=== PATIENT | male | born 1955 | race Caucasian/White ===

== ENCOUNTER 2017-11-07 10:16 | Inpatient (IN) | payer OTHER ==
[2017-11-07 11:22] LABS: WHITE BLOOD COUNT 1.2 10^3/ul (4.8-10.8)
[2017-11-07 11:22] LABS: ABNORMAL IP MESSAGE 1; HEMATOCRIT 31.5 % (42.0-52.0); HEMOGLOBIN 10.3 g/dl (14.0-18.0); MEAN CORPUSCULAR HEMOGLOBIN 28.1 pg (29.0-33.0); MEAN CORPUSCULAR HGB CONC 32.7 g/dl (32.0-37.0); MEAN CORPUSCULAR VOLUME 86.1 fl (82.0-101.0); MEAN PLATELET VOLUME 9.1 fl (7.4-10.4); PLATELET COUNT 207 10^3/UL (140-415); POSITIVE DIFF @See below; RED BLOOD COUNT 3.66 10^6/ul (4.70-6.10); RED CELL DISTRIBUTION WIDTH 19.5 % (11.5-14.5)
[2017-11-07 11:32] LABS: ADD MAN DIFF? YES
[2017-11-07 11:40] LABS: ALANINE AMINOTRANSFERASE 31 IU/L (13-69); ALBUMIN/GLOBULIN RATIO 1.03; ALKALINE PHOSPHATASE 208 IU/L (42-121); ANION GAP 17 (8-16); ASPARTATE AMINO TRANSFERASE 69 IU/L (15-46); BILIRUBIN,INDIRECT 0.5 mg/dl (0-1.1); BILIRUBIN,TOTAL 0.5 mg/dl (0.2-1.3); BLOOD UREA NITROGEN 28 mg/dl (7-20); CALCIUM 8.3 mg/dl (8.4-10.2); CARBON DIOXIDE 23 mmol/L (21-31); CHLORIDE 104 mmol/L (97-110); CREATININE 1.39 mg/dl (0.61-1.24); SODIUM 141 mmol/L (135-144); TOTAL PROTEIN 5.9 g/dl (6.1-8.1)
[2017-11-07 11:42] LABS: INR 1.11; PARTIAL THROMBOPLASTIN TIME 23.1 Sec (25.0-35.0); PROTIME 14.5 Sec (11.9-14.9); PT RATIO 1.1
[2017-11-07 11:43] LABS: POTASSIUM 2.7 mmol/L (3.5-5.1)
[2017-11-07] MEDS: D5W-0.45 NACL + KCL 40 MEQ 1,000 ML IV ×2 (12:28→20:00)
[2017-11-07] MEDS ORDERED: morphine 2 MG INJ IV (12:30)
[2017-11-07] MEDS ORDERED: ALBUTEROL/IPRATROPIUM (NEB) 3 ML AMP HHN (12:30)
[2017-11-07] MEDS ORDERED: LORAZEPAM 2 MG INJ IV (12:30)
[2017-11-07] MEDS ORDERED: ACETAMINOPHEN 325 MG TAB PO (12:30)
[2017-11-07] MEDS ORDERED: NACL 0.9% 3 ML SYG IV (12:30)
[2017-11-07] MEDS ORDERED: NITROGLYCERIN (SL) 0.4 MG TAB SL (12:30)
[2017-11-07] MEDS ORDERED: hydrALAzine 20 MG INJ IV (12:30)
[2017-11-07] MEDS ORDERED: HYDROCODONE/APAP (5/325) TAB PO (12:30)
[2017-11-07] MEDS: INSULIN ASPART [NOVOLOG] 3 ML PEN SC ×3 (13:00→21:00)
[2017-11-07 13:57] LABS: LACTIC ACID 3.3 mmol/L (0.5-2.0)
[2017-11-07] MEDS ORDERED: GLUCAGON 1 MG INJ IM (14:00)
[2017-11-07] MEDS ORDERED: DEXTROSE 50% 50 ML SYRINGE IV ×2 (14:00)
[2017-11-07] MEDS ORDERED: GLUCOSE GEL 15 GRAM TUBE PO ×2 (14:00)
[2017-11-07] MEDS ORDERED: GLUCOSE GEL 15 GRAM TUBE BUCCAL (14:00)
[2017-11-07 14:12] LABS: FREE T4 (FREE THYROXINE) 1.54 ng/dl (0.78-2.44)
[2017-11-07 18:43] LABS: LACTIC ACID 2.8 mmol/L (0.5-2.0)
[2017-11-07 21:18] LABS: LACTIC ACID 3.2 mmol/L (0.5-2.0)
[2017-11-07] MEDS: ATORVASTATIN 10 MG TAB PO (21:53)
[2017-11-07] MEDS: HEPARIN 5,000 UNIT/0.5 ML VIAL SC (21:54)
[2017-11-08] MEDS: INSULIN ASPART [NOVOLOG] 3 ML PEN SC ×6 (01:00→21:00)
[2017-11-08] MEDS: POTASSIUM CHLORIDE (SR) 20 MEQ TAB PO (01:26)
[2017-11-08] MEDS: D5W-0.45 NACL + KCL 40 MEQ 1,000 ML IV ×4 (01:40→21:25)
[2017-11-08] MEDS: ACCU-CHEK XX (02:00)
[2017-11-08] MEDS: PANTOPRAZOLE (EC) 40 MG TAB PO (06:49)
[2017-11-08] MEDS: POTASSIUM CHLORIDE (SR) 10 MEQ TAB PO (06:49)
[2017-11-08 07:56] LABS: ABNORMAL IP MESSAGE 1; HEMATOCRIT 32.7 % (42.0-52.0); HEMOGLOBIN 10.3 g/dl (14.0-18.0); MEAN CORPUSCULAR HEMOGLOBIN 27.9 pg (29.0-33.0); MEAN CORPUSCULAR HGB CONC 31.5 g/dl (32.0-37.0); MEAN CORPUSCULAR VOLUME 88.6 fl (82.0-101.0); MEAN PLATELET VOLUME 8.9 fl (7.4-10.4); PLATELET COUNT 200 10^3/UL (140-415); POSITIVE DIFF @See below; RED BLOOD COUNT 3.69 10^6/ul (4.70-6.10); RED CELL DISTRIBUTION WIDTH 19.8 % (11.5-14.5)
[2017-11-08 07:56] LABS: WHITE BLOOD COUNT 1.5 10^3/ul (4.8-10.8)
[2017-11-08 08:05] LABS: ADD MAN DIFF? YES
[2017-11-08 08:09] LABS: CHOLESTEROL 96 mg/dl (100-200)
[2017-11-08 08:09] LABS: CHOL/HDL RATIO 2.3 RATIO; HDL CHOLESTEROL 41 mg/dl (30-78); LDL CHOLESTEROL,CALCULATED 30 mg/dl; TRIGLYCERIDES 123 mg/dl (0-149)
[2017-11-08 08:12] LABS: ANION GAP 10 (8-16); BLOOD UREA NITROGEN 21 mg/dl (7-20); CALCIUM 8.4 mg/dl (8.4-10.2); CARBON DIOXIDE 31 mmol/L (21-31); CHLORIDE 105 mmol/L (97-110); CREATININE 0.95 mg/dl (0.61-1.24); GLUCOSE 116 mg/dl (70-220); MAGNESIUM 1.7 mg/dl (1.7-2.5); PHOSPHORUS 2.7 mg/dl (2.5-4.9); SODIUM 142 mmol/L (135-144)
[2017-11-08 08:17] LABS: HEMOGLOBIN A1C 5.3 % (0-5.9)
[2017-11-08] MEDS: FOLIC ACID 1 MG TAB PO (08:43)
[2017-11-08] MEDS: FERROUS SULFATE (EC) 325 MG TAB PO (08:43)
[2017-11-08] MEDS: ASPIRIN (EC) 81 MG TAB PO (08:43)
[2017-11-08] MEDS: CHOLECALCIFEROL 2,000 UNIT CAP PO (08:43)
[2017-11-08] MEDS: AMLODIPINE 10 MG TAB PO (08:44)
[2017-11-08] MEDS: HEPARIN 5,000 UNIT/0.5 ML VIAL SC ×2 (08:45→20:29)
[2017-11-08 10:37] LABS: ANISOCYTOSIS 3+ (0-0); BAND NEUTROPHILS #M 0.1 10^3/ul (0.0-0.6); BAND NEUTROPHILS % (M) 13 % (0-4); BURR CELLS 1+ (0-0); EOSINOPHILS % (M) 5 % (0-7); GIANT THROMBO% (M) 1 % (0-0); LYMPHOCYTES #M 0.8 10^3/ul (0.8-2.9); LYMPHOCYTES % (M) 54 % (15-51); MICROCYTOSIS 2+ (0-0); PLATELET ESTIMATE NORMAL; POIKILOCYTOSIS 2+ (0-0); POLYCHROMASIA 3+ (0-0); RBC MORPHOLOGY COMMENT @See below; SEG NEUT #M 0.4 10^3/ul (1.6-7.5); SEGMENTED NEUTROPHILS (M) % 28 % (39-77); SMUDGE%M 4 % (0-0); WBC MORPHOLOGY COMMENT @See below
[2017-11-08] MEDS: ATORVASTATIN 10 MG TAB PO (20:27)
[2017-11-08] MEDS: ONDANSETRON 4 MG INJ IV (20:27)
[2017-11-09] MEDS: INSULIN ASPART [NOVOLOG] 3 ML PEN SC ×6 (01:32→21:00)
[2017-11-09] MEDS: ACCU-CHEK XX (01:33)
[2017-11-09] MEDS: PANTOPRAZOLE (EC) 40 MG TAB PO (05:24)
[2017-11-09] MEDS: D5W-0.45 NACL + KCL 40 MEQ 1,000 ML IV ×2 (05:24→11:24)
[2017-11-09 06:57] LABS: WHITE BLOOD COUNT 1.3 10^3/ul (4.8-10.8)
[2017-11-09 06:57] LABS: ABNORMAL IP MESSAGE 1; HEMATOCRIT 27.8 % (42.0-52.0); HEMOGLOBIN 9.1 g/dl (14.0-18.0); MEAN CORPUSCULAR HEMOGLOBIN 28.5 pg (29.0-33.0); MEAN CORPUSCULAR HGB CONC 32.7 g/dl (32.0-37.0); MEAN CORPUSCULAR VOLUME 87.1 fl (82.0-101.0); MEAN PLATELET VOLUME 9.1 fl (7.4-10.4); PLATELET COUNT 129 10^3/UL (140-415); POSITIVE DIFF @See below; RED BLOOD COUNT 3.19 10^6/ul (4.70-6.10); RED CELL DISTRIBUTION WIDTH 19.8 % (11.5-14.5)
[2017-11-09 07:06] LABS: ADD MAN DIFF? YES
[2017-11-09 07:24] LABS: ANION GAP 9 (8-16); BLOOD UREA NITROGEN 15 mg/dl (7-20); CALCIUM 8.2 mg/dl (8.4-10.2); CARBON DIOXIDE 29 mmol/L (21-31); CHLORIDE 105 mmol/L (97-110); CREATININE 0.73 mg/dl (0.61-1.24); GLUCOSE 148 mg/dl (70-220); POTASSIUM 4.9 mmol/L (3.5-5.1); SODIUM 138 mmol/L (135-144)
[2017-11-09 08:08] LABS: ANISOCYTOSIS 2+ (0-0); BASOPHILS % (M) 1 % (0-2); GIANT THROMBO% (M) 1 % (0-0); MICROCYTOSIS 2+ (0-0); PLATELET ESTIMATE DECREASED; POIKILOCYTOSIS 2+ (0-0); SEG NEUT #M 0.3 10^3/ul (1.6-7.5)
[2017-11-09] MEDS: FOLIC ACID 1 MG TAB PO (09:12)
[2017-11-09] MEDS: FERROUS SULFATE (EC) 325 MG TAB PO (09:12)
[2017-11-09] MEDS: CHOLECALCIFEROL 2,000 UNIT CAP PO (09:12)
[2017-11-09] MEDS: ASPIRIN (EC) 81 MG TAB PO (09:12)
[2017-11-09] MEDS: AMLODIPINE 10 MG TAB PO (09:18)
[2017-11-09] MEDS: HEPARIN 5,000 UNIT/0.5 ML VIAL SC ×2 (09:34→21:25)
[2017-11-09 09:56] LABS: BAND NEUTROPHILS % (M) 4 % (0-4); EOSINOPHILS % (M) 30 % (0-7); LYMPHOCYTES #M 0.5 10^3/ul (0.8-2.9); LYMPHOCYTES % (M) 40 % (15-51); MONOCYTES % (M) 2 % (0-11); POLYCHROMASIA 2+ (0-0); REACTIVE LYMPHOCYTES% (M) 1 % (0-0); SEGMENTED NEUTROPHILS (M) % 24 % (39-77); SMUDGE%M 2 % (0-0)
[2017-11-09] MEDS: ONDANSETRON 4 MG INJ IV (11:19)
[2017-11-09] MEDS: DOCUSATE SODIUM 100 MG CAP PO (14:53)
[2017-11-09] MEDS: MAGNESIUM HYDROXIDE 30ML CUP PO ×2 (14:53→18:08)
[2017-11-09] MEDS: ATORVASTATIN 10 MG TAB PO (21:24)
[2017-11-09] MEDS: NA PHOSPHATE/BIPHOS 133 ML ENEMA PR (21:24)
[2017-11-10] MEDS: D5W-0.45 NACL + KCL 40 MEQ 1,000 ML IV ×2 (02:33→04:00)
[2017-11-10] MEDS: INSULIN ASPART [NOVOLOG] 3 ML PEN SC ×4 (02:40→12:51)
[2017-11-10] MEDS: ACCU-CHEK XX (02:40)
[2017-11-10] MEDS: PANTOPRAZOLE (EC) 40 MG TAB PO (05:24)
[2017-11-10 08:03] LABS: WHITE BLOOD COUNT 1.6 10^3/ul (4.8-10.8)
[2017-11-10 08:03] LABS: ABNORMAL IP MESSAGE 1; HEMATOCRIT 27.7 % (42.0-52.0); HEMOGLOBIN 8.9 g/dl (14.0-18.0); MEAN CORPUSCULAR HEMOGLOBIN 28.1 pg (29.0-33.0); MEAN CORPUSCULAR HGB CONC 32.1 g/dl (32.0-37.0); MEAN CORPUSCULAR VOLUME 87.4 fl (82.0-101.0); MEAN PLATELET VOLUME 9.3 fl (7.4-10.4); PLATELET COUNT 132 10^3/UL (140-415); POSITIVE DIFF @See below; RED BLOOD COUNT 3.17 10^6/ul (4.70-6.10); RED CELL DISTRIBUTION WIDTH 19.7 % (11.5-14.5)
[2017-11-10 08:06] LABS: ADD MAN DIFF? YES
[2017-11-10 08:28] LABS: ANION GAP 7 (8-16); BLOOD UREA NITROGEN 12 mg/dl (7-20); CALCIUM 8.3 mg/dl (8.4-10.2); CARBON DIOXIDE 30 mmol/L (21-31); CHLORIDE 106 mmol/L (97-110); CREATININE 0.76 mg/dl (0.61-1.24); GLUCOSE 140 mg/dl (70-220); POTASSIUM 5.1 mmol/L (3.5-5.1); SODIUM 138 mmol/L (135-144)
[2017-11-10] MEDS: FOLIC ACID 1 MG TAB PO (09:16)
[2017-11-10] MEDS: CHOLECALCIFEROL 2,000 UNIT CAP PO (09:16)
[2017-11-10] MEDS: ASPIRIN (EC) 81 MG TAB PO (09:16)
[2017-11-10] MEDS: FERROUS SULFATE (EC) 325 MG TAB PO (09:17)
[2017-11-10] MEDS: AMLODIPINE 10 MG TAB PO (09:17)
[2017-11-10] MEDS: HEPARIN 5,000 UNIT/0.5 ML VIAL SC (09:20)
[2017-11-10 09:42] LABS: GLUCOSE 41 mg/dl (70-220)
[2017-11-10 09:56] LABS: ANISOCYTOSIS 2+ (0-0); BASOPHILS % (M) 2 % (0-2); BURR CELLS 1+ (0-0); EOSINOPHILS % (M) 38 % (0-7); LYMPHOCYTES #M 0.5 10^3/ul (0.8-2.9); LYMPHOCYTES % (M) 35 % (15-51); MICROCYTOSIS 2+ (0-0); MONOCYTES % (M) 4 % (0-11); PLATELET ESTIMATE DECREASED; POIKILOCYTOSIS 1+ (0-0); POLYCHROMASIA 3+ (0-0); SEGMENTED NEUTROPHILS (M) % 21 % (39-77); SMUDGE%M 11 % (0-0)
[2017-11-11 15:33] LABS: PATH REVIEW CH
== END 2017-11-10 17:25 | disposition home or self-care (01) | DRG 101 ==
LOC: E/R 10:16 → MS4 12:20
DX: G40.409 Other generalized epilepsy and epileptic syndromes, not intractable, without status epilepticus (principal); C18.9 Malignant neoplasm of colon, unspecified; C78.7 Secondary malignant neoplasm of liver and intrahepatic bile duct; E11.649 Type 2 diabetes mellitus with hypoglycemia without coma; E87.6 Hypokalemia; I10 Essential (primary) hypertension; N28.9 Disorder of kidney and ureter, unspecified; E78.5 Hyperlipidemia, unspecified
CPT/HCPCS: 36415; 70450; 70551; 71045; 80048; 80053; 80061; 82962; 83036; 83605; 83735; 84100; 84439; 84443; 85025; 85610; 85730; 87040; 87081; 92610; 93005; 95819; 96374; 97161; 99285-25

== ENCOUNTER 2017-12-15 21:13 | Inpatient (IN) | payer OTHER ==
[2017-12-15] MEDS ORDERED: DEXTROSE 50% 50 ML SYRINGE IV ×2 (23:00)
[2017-12-15] MEDS ORDERED: GLUCOSE GEL 15 GRAM TUBE BUCCAL (23:00)
[2017-12-15] MEDS ORDERED: GLUCOSE GEL 15 GRAM TUBE PO ×2 (23:00)
[2017-12-15] MEDS ORDERED: GLUCAGON 1 MG INJ IM (23:00)
[2017-12-16 00:48] LABS: ADD MAN DIFF? NO
[2017-12-16 00:53] LABS: BASOPHIL # 0.1 10^3/ul (0.0-0.1); BASOPHILS % 0.7 % (0.0-2.0); EOSINOPHILS # 0.6 10^3/ul (0.0-0.5); EOSINOPHILS % 4.3 % (0.0-7.0); HEMATOCRIT 28.9 % (42.0-52.0); HEMOGLOBIN 9.1 g/dl (14.0-18.0); LYMPHOCYTES # 1.3 10^3/ul (0.8-2.9); MEAN CORPUSCULAR HEMOGLOBIN 27.7 pg (29.0-33.0); MEAN CORPUSCULAR HGB CONC 31.5 g/dl (32.0-37.0); MEAN CORPUSCULAR VOLUME 88.1 fl (82.0-101.0); MEAN PLATELET VOLUME 9.3 fl (7.4-10.4); MONOCYTE # 1.3 10^3/ul (0.3-0.9); MONOCYTES % 8.5 % (0.0-11.0); NEUTROPHIL # 11.2 10^3/ul (1.6-7.5); NEUTROPHILS % 75.9 % (39.0-77.0); PLATELET COUNT 187 10^3/UL (140-415); RED BLOOD COUNT 3.28 10^6/ul (4.70-6.10); RED CELL DISTRIBUTION WIDTH 21.6 % (11.5-14.5)
[2017-12-16 00:53] LABS: WHITE BLOOD COUNT 14.8 10^3/ul (4.8-10.8)
[2017-12-16 01:18] LABS: ANION GAP 11 (8-16); BLOOD UREA NITROGEN 32 mg/dl (7-20); CALCIUM 8.1 mg/dl (8.4-10.2); CARBON DIOXIDE 24 mmol/L (21-31); CHLORIDE 107 mmol/L (97-110); CREATININE 0.96 mg/dl (0.61-1.24); GLUCOSE 118 mg/dl (70-220); MAGNESIUM 1.6 mg/dl (1.7-2.5); POTASSIUM 3.3 mmol/L (3.5-5.1); SODIUM 139 mmol/L (135-144)
[2017-12-16] MEDS: ACCU-CHEK XX (02:00)
[2017-12-16] MEDS: morphine 2 MG INJ IV ×4 (05:22→20:41)
[2017-12-16] MEDS ORDERED: NACL 0.9% 3 ML SYG IV (06:00)
[2017-12-16] MEDS ORDERED: ALBUTEROL/IPRATROPIUM (NEB) 3 ML AMP HHN (06:00)
[2017-12-16] MEDS: MAGNESIUM SULFATE 2 GM/50 ML 50 ML IVPB (06:33)
[2017-12-16] MEDS: INSULIN ASPART [NOVOLOG] 3 ML PEN SC ×4 (08:00→20:40)
[2017-12-16 08:03] LABS: LACTIC ACID 1.1 mmol/L (0.5-2.0)
[2017-12-16 08:21] LABS: IRON 41 ug/dl (35-150)
[2017-12-16 08:31] LABS: % IRON SATURATION 21 % SAT (22-52); TOTAL IRON BINDING CAPACITY 197 ug/dl (241-421)
[2017-12-16] MEDS: CEFTRIAXONE 1 GM/50 ML (PMX) 50 ML IVPB ×2 (09:14→22:44)
[2017-12-16] MEDS: POTASSIUM CHLORIDE (SR) 20 MEQ TAB PO (15:25)
[2017-12-16] MEDS: FUROSEMIDE 20 MG INJ IV (15:26)
[2017-12-16 17:46] LABS: ADD UMIC YES; UR ASCORBIC ACID NEGATIVE (NEGATIVE); UR BACTERIA FEW /HPF (NONE SEEN); UR BILIRUBIN (Dip) NEGATIVE (NEGATIVE); UR BLOOD (Dip) 1+ mg/dL (NEGATIVE); UR CLARITY CLOUDY (CLEAR); UR COLOR YELLOW (YELLOW); UR GLUCOSE (Dip) NEGATIVE (NEGATIVE); UR KETONES (Dip) NEGATIVE (NEGATIVE); UR LEUKOCYTE ESTERASE (Dip) 3+ Leu/ul (NEGATIVE); UR NITRITE (Dip) NEGATIVE (NEGATIVE); UR RBC 4 /HPF (0-5); UR SPECIFIC GRAVITY (Dip) 1.015 (1.003-1.030); UR TOTAL PROTEIN (Dip) NEGATIVE (NEGATIVE); UR URIC ACID CRYSTAL MODERATE /HPF (NONE SEEN); UR UROBILINOGEN (Dip) NEGATIVE (NEGATIVE); UR WBC 34 /HPF (0-5)
[2017-12-16] MEDS: INSULIN GLARGINE [LANtus] 3 ML PEN SC (22:43)
[2017-12-17] MEDS: morphine 2 MG INJ IV ×3 (01:03→10:13)
[2017-12-17] MEDS: ACCU-CHEK XX (02:55)
[2017-12-17] MEDS: ONDANSETRON 4 MG INJ IV (05:31)
[2017-12-17] MEDS: INSULIN ASPART [NOVOLOG] 3 ML PEN SC ×4 (08:00→20:41)
[2017-12-17 08:22] LABS: WHITE BLOOD COUNT 27.5 10^3/ul (4.8-10.8)
[2017-12-17 08:22] LABS: ABNORMAL IP MESSAGE 1; HEMATOCRIT 34.2 % (42.0-52.0); HEMOGLOBIN 10.3 g/dl (14.0-18.0); MEAN CORPUSCULAR HEMOGLOBIN 27.2 pg (29.0-33.0); MEAN CORPUSCULAR HGB CONC 30.1 g/dl (32.0-37.0); MEAN CORPUSCULAR VOLUME 90.2 fl (82.0-101.0); MEAN PLATELET VOLUME 9.6 fl (7.4-10.4); PLATELET COUNT 240 10^3/UL (140-415); POSITIVE DIFF @See below; RED BLOOD COUNT 3.79 10^6/ul (4.70-6.10); RED CELL DISTRIBUTION WIDTH 21.7 % (11.5-14.5)
[2017-12-17 08:28] LABS: ADD MAN DIFF? YES
[2017-12-17] MEDS: CEFTRIAXONE 2 GM/50 ML (PMX) 50 ML IVPB (08:44)
[2017-12-17] MEDS: FUROSEMIDE 20 MG INJ IV (08:46)
[2017-12-17 08:48] LABS: ALANINE AMINOTRANSFERASE 28 IU/L (13-69); ALBUMIN 2.8 g/dl (3.3-4.9); ALKALINE PHOSPHATASE 320 IU/L (42-121); ANION GAP 13 (8-16); ASPARTATE AMINO TRANSFERASE 46 IU/L (15-46); BILIRUBIN,INDIRECT 0.4 mg/dl (0-1.1); BILIRUBIN,TOTAL 0.4 mg/dl (0.2-1.3); BLOOD UREA NITROGEN 30 mg/dl (7-20); CALCIUM 8.4 mg/dl (8.4-10.2); CARBON DIOXIDE 26 mmol/L (21-31); CHLORIDE 106 mmol/L (97-110); CREATININE 0.95 mg/dl (0.61-1.24); GLUCOSE 116 mg/dl (70-220); POTASSIUM 3.5 mmol/L (3.5-5.1); SODIUM 141 mmol/L (135-144); TOTAL PROTEIN 5.9 g/dl (6.1-8.1)
[2017-12-17 09:41] LABS: ANISOCYTOSIS 2+ (0-0); BAND NEUTROPHILS #M 2.7 10^3/ul (0.0-0.6); BAND NEUTROPHILS % (M) 10 % (0-4); BASOPHIL #M 0.2 10^3/ul (0.0-0.0); BASOPHILS % (M) 1 % (0-2); EOSINOPHILS % (M) 3 % (0-7); LYMPHOCYTES #M 1.3 10^3/ul (0.8-2.9); LYMPHOCYTES % (M) 5 % (15-51); MICROCYTOSIS 2+ (0-0); MONOCYTE #M 1.9 10^3/ul (0.3-0.9); MONOCYTES % (M) 7 % (0-11); PLATELET ESTIMATE NORMAL; POIKILOCYTOSIS 2+ (0-0); POLYCHROMASIA 3+ (0-0); SEG NEUT #M 21.1 10^3/ul (1.6-7.5); SEGMENTED NEUTROPHILS (M) % 74 % (39-77); SMUDGE%M 2 % (0-0)
[2017-12-17] MEDS: HYDROmorphONE 1 MG/ML SYG IV ×2 (14:37→20:09)
[2017-12-17] MEDS ORDERED: VANCOMYCIN IV PER PHARMACY XX (16:00)
[2017-12-17] MEDS ORDERED: ERTAPENEM SODIUM 1 GM in SOD CHLORIDE 0.9% 100 ML IVPB (17:00)
[2017-12-17] MEDS: ALBUMIN HUMAN 5% 250 ML IV (17:17)
[2017-12-17] MEDS ORDERED: VANCOMYCIN 2 GM in SOD CHLORIDE 0.9% 500 ML IVPB (18:00)
[2017-12-17] MEDS: VANCOMYCIN 2 GM in SOD CHLORIDE 0.9% 500 ML IVPB (20:09)
[2017-12-17] MEDS: INSULIN GLARGINE [LANtus] 3 ML PEN SC (20:40)
[2017-12-18] MEDS: HYDROmorphONE 1 MG/ML SYG IV ×6 (01:28→22:04)
[2017-12-18] MEDS: ERTAPENEM SODIUM 1 GM in SOD CHLORIDE 0.9% 100 ML IVPB ×2 (01:28→20:36)
[2017-12-18] MEDS: ACCU-CHEK XX (02:00)
[2017-12-18] MEDS: VANCOMYCIN 1.5 GM in SOD CHLORIDE 0.9% 250 ML IVPB ×2 (06:37→17:23)
[2017-12-18] MEDS: INSULIN ASPART [NOVOLOG] 3 ML PEN SC ×4 (08:00→20:51)
[2017-12-18] MEDS: FUROSEMIDE 20 MG INJ IV (08:03)
[2017-12-18 08:27] LABS: ADD MAN DIFF? NO
[2017-12-18 08:31] LABS: WHITE BLOOD COUNT 34.5 10^3/ul (4.8-10.8)
[2017-12-18 08:31] LABS: ABNORMAL IP MESSAGE 1; HEMATOCRIT 30.4 % (42.0-52.0); HEMOGLOBIN 9.7 g/dl (14.0-18.0); MEAN CORPUSCULAR HEMOGLOBIN 28.2 pg (29.0-33.0); MEAN CORPUSCULAR HGB CONC 31.9 g/dl (32.0-37.0); MEAN CORPUSCULAR VOLUME 88.4 fl (82.0-101.0); MEAN PLATELET VOLUME 9.1 fl (7.4-10.4); PLATELET COUNT 207 10^3/UL (140-415); POSITIVE DIFF @See below; RED BLOOD COUNT 3.44 10^6/ul (4.70-6.10); RED CELL DISTRIBUTION WIDTH 21.7 % (11.5-14.5)
[2017-12-18 09:03] LABS: ANION GAP 14 (8-16); BLOOD UREA NITROGEN 30 mg/dl (7-20); CALCIUM 8.1 mg/dl (8.4-10.2); CARBON DIOXIDE 21 mmol/L (21-31); CHLORIDE 107 mmol/L (97-110); CREATININE 1.15 mg/dl (0.61-1.24); GLUCOSE 103 mg/dl (70-220); SODIUM 139 mmol/L (135-144)
[2017-12-18 09:38] LABS: ANISOCYTOSIS 1+ (0-0); BAND NEUTROPHILS #M 2.7 10^3/ul (0.0-0.6); BAND NEUTROPHILS % (M) 8 % (0-4); BURR CELLS 1+ (0-0); EOSINOPHILS % (M) 1 % (0-7); LYMPHOCYTES % (M) 3 % (15-51); METAMYELOCYTES #M 0.3 10^3/ul (0.0-0.0); METAMYELOCYTES %M 1 % (0-0); MICROCYTOSIS 1+ (0-0); MONOCYTE #M 0.3 10^3/ul (0.3-0.9); MONOCYTES % (M) 1 % (0-11); MYELOCYTES #M 0.3 10^3/ul (0.0-0.0); MYELOCYTES % (M) 1 % (0-0); OVALOCYTES 1+ (0-0); PLATELET ESTIMATE NORMAL; POIKILOCYTOSIS 1+ (0-0); POLYCHROMASIA 1+ (0-0); PROMYELOCYTES #M 0.3 10^3/ul (0-0); PROMYELOCYTES % (M) 1 % (0-0); SEG NEUT #M 29.9 10^3/ul (1.6-7.5); SEGMENTED NEUTROPHILS (M) % 84 % (39-77); SMUDGE%M 2 % (0-0)
[2017-12-18] MEDS: POTASSIUM CHLORIDE (SR) 20 MEQ TAB PO (13:03)
[2017-12-18 14:28] LABS: INR 1.28; PROTIME 16.2 Sec (11.9-14.9); PT RATIO 1.3
[2017-12-18] MEDS: LIDOCAINE 1% (MDV) 10 ML INJ (15:44)
[2017-12-18 16:44] LABS: FLD RBC 0 /uL; FLD WBC 382 /cmm
[2017-12-18 16:51] LABS: FLUID GLUCOSE 111 mg/dl
[2017-12-18 16:52] LABS: FLUID AMYLASE < 30 U/L; FLUID LD 254 U/L; FLUID TYPE PARACENTESIS FLUID
[2017-12-18 16:53] LABS: FLUID TOTAL PROTEIN < 2.0 g/dl
[2017-12-18 18:07] LABS: FLD TYPE PARACENTHESIS
[2017-12-18 18:07] LABS: FLD CLARITY HAZY; FLD COLOR AMBER
[2017-12-18 18:31] LABS: FLD MN% 62.5 %; FLD PMN% 37.5 %
[2017-12-18] MEDS: INSULIN GLARGINE [LANtus] 3 ML PEN SC (20:50)
[2017-12-19] MEDS: ACCU-CHEK XX (02:00)
[2017-12-19] MEDS: HYDROmorphONE 1 MG/ML SYG IV ×5 (02:34→23:11)
[2017-12-19 06:29] LABS: ADD MAN DIFF? NO
[2017-12-19 06:33] LABS: WHITE BLOOD COUNT 23.1 10^3/ul (4.8-10.8)
[2017-12-19 06:33] LABS: BASOPHIL # 0.2 10^3/ul (0.0-0.1); BASOPHILS % 0.6 % (0.0-2.0); EOSINOPHILS # 1.1 10^3/ul (0.0-0.5); EOSINOPHILS % 4.7 % (0.0-7.0); HEMATOCRIT 29.4 % (42.0-52.0); HEMOGLOBIN 9.3 g/dl (14.0-18.0); LYMPHOCYTES # 1.3 10^3/ul (0.8-2.9); LYMPHOCYTES % 5.7 % (15.0-51.0); MEAN CORPUSCULAR HEMOGLOBIN 28.4 pg (29.0-33.0); MEAN CORPUSCULAR HGB CONC 31.6 g/dl (32.0-37.0); MEAN CORPUSCULAR VOLUME 89.9 fl (82.0-101.0); MEAN PLATELET VOLUME 9.1 fl (7.4-10.4); MONOCYTE # 1.5 10^3/ul (0.3-0.9); MONOCYTES % 6.4 % (0.0-11.0); NEUTROPHIL # 18.9 10^3/ul (1.6-7.5); NEUTROPHILS % 81.8 % (39.0-77.0); PLATELET COUNT 192 10^3/UL (140-415); RED BLOOD COUNT 3.27 10^6/ul (4.70-6.10); RED CELL DISTRIBUTION WIDTH 21.3 % (11.5-14.5)
[2017-12-19 07:06] LABS: ANION GAP 9 (8-16); BLOOD UREA NITROGEN 34 mg/dl (7-20); CALCIUM 8.1 mg/dl (8.4-10.2); CARBON DIOXIDE 24 mmol/L (21-31); CHLORIDE 108 mmol/L (97-110); CREATININE 1.19 mg/dl (0.61-1.24); GLUCOSE 98 mg/dl (70-220); POTASSIUM 3.1 mmol/L (3.5-5.1); SODIUM 138 mmol/L (135-144)
[2017-12-19] MEDS: INSULIN ASPART [NOVOLOG] 3 ML PEN SC ×4 (08:00→20:55)
[2017-12-19] MEDS: FUROSEMIDE 20 MG INJ IV (08:44)
[2017-12-19] MEDS: POTASSIUM CHLORIDE (SR) 20 MEQ TAB PO (16:48)
[2017-12-19] MEDS: MEGESTROL (40 MG/ML) 10ML CUP PO (16:48)
[2017-12-19] MEDS: ZYVOX 600 MG TAB PO (20:55)
[2017-12-19] MEDS: INSULIN GLARGINE [LANtus] 3 ML PEN SC (20:56)
[2017-12-19] MEDS: ERTAPENEM SODIUM 1 GM in SOD CHLORIDE 0.9% 100 ML IVPB (21:02)
[2017-12-20] MEDS: ACCU-CHEK XX (02:00)
[2017-12-20 06:12] LABS: ADD MAN DIFF? NO; BASOPHIL # 0.1 10^3/ul (0.0-0.1); BASOPHILS % 0.5 % (0.0-2.0); EOSINOPHILS # 0.9 10^3/ul (0.0-0.5); EOSINOPHILS % 4.7 % (0.0-7.0); HEMATOCRIT 29.4 % (42.0-52.0); HEMOGLOBIN 9.3 g/dl (14.0-18.0); LYMPHOCYTES # 1.5 10^3/ul (0.8-2.9); MEAN CORPUSCULAR HEMOGLOBIN 27.7 pg (29.0-33.0); MEAN CORPUSCULAR HGB CONC 31.6 g/dl (32.0-37.0); MEAN CORPUSCULAR VOLUME 87.5 fl (82.0-101.0); MEAN PLATELET VOLUME 9.1 fl (7.4-10.4); MONOCYTE # 1.4 10^3/ul (0.3-0.9); MONOCYTES % 7.8 % (0.0-11.0); NEUTROPHIL # 14.2 10^3/ul (1.6-7.5); NEUTROPHILS % 77.8 % (39.0-77.0); PLATELET COUNT 197 10^3/UL (140-415); RED BLOOD COUNT 3.36 10^6/ul (4.70-6.10); RED CELL DISTRIBUTION WIDTH 21.2 % (11.5-14.5)
[2017-12-20 06:12] LABS: WHITE BLOOD COUNT 18.2 10^3/ul (4.8-10.8)
[2017-12-20 06:43] LABS: ANION GAP 8 (8-16); BLOOD UREA NITROGEN 36 mg/dl (7-20); CALCIUM 8.1 mg/dl (8.4-10.2); CARBON DIOXIDE 22 mmol/L (21-31); CHLORIDE 107 mmol/L (97-110); CREATININE 1.21 mg/dl (0.61-1.24); GLUCOSE 113 mg/dl (70-220); POTASSIUM 3.2 mmol/L (3.5-5.1); SODIUM 134 mmol/L (135-144)
[2017-12-20] MEDS: HYDROmorphONE 1 MG/ML SYG IV ×3 (07:47→20:57)
[2017-12-20] MEDS: INSULIN ASPART [NOVOLOG] 3 ML PEN SC ×4 (08:00→20:53)
[2017-12-20] MEDS: ZYVOX 600 MG TAB PO ×2 (08:29→20:52)
[2017-12-20] MEDS: FUROSEMIDE 20 MG INJ IV (08:30)
[2017-12-20] MEDS: POTASSIUM CHLORIDE (SR) 20 MEQ TAB PO (15:39)
[2017-12-20] MEDS: INSULIN GLARGINE [LANtus] 3 ML PEN SC (20:53)
[2017-12-20] MEDS: ERTAPENEM SODIUM 1 GM in SOD CHLORIDE 0.9% 100 ML IVPB (20:56)
[2017-12-21] MEDS: ACCU-CHEK XX ×2 (02:00→23:22)
[2017-12-21 06:09] LABS: ADD MAN DIFF? NO
[2017-12-21 06:25] LABS: WHITE BLOOD COUNT 13.3 10^3/ul (4.8-10.8)
[2017-12-21 06:25] LABS: BASOPHIL # 0.1 10^3/ul (0.0-0.1); BASOPHILS % 0.6 % (0.0-2.0); EOSINOPHILS # 0.6 10^3/ul (0.0-0.5); EOSINOPHILS % 4.6 % (0.0-7.0); HEMATOCRIT 30.3 % (42.0-52.0); HEMOGLOBIN 9.6 g/dl (14.0-18.0); LYMPHOCYTES # 1.4 10^3/ul (0.8-2.9); LYMPHOCYTES % 10.8 % (15.0-51.0); MEAN CORPUSCULAR HGB CONC 31.7 g/dl (32.0-37.0); MEAN CORPUSCULAR VOLUME 88.3 fl (82.0-101.0); MEAN PLATELET VOLUME 9.6 fl (7.4-10.4); MONOCYTE # 1.2 10^3/ul (0.3-0.9); MONOCYTES % 8.7 % (0.0-11.0); NEUTROPHIL # 9.8 10^3/ul (1.6-7.5); NEUTROPHILS % 73.9 % (39.0-77.0); PLATELET COUNT 186 10^3/UL (140-415); RED BLOOD COUNT 3.43 10^6/ul (4.70-6.10); RED CELL DISTRIBUTION WIDTH 20.9 % (11.5-14.5)
[2017-12-21 06:26] LABS: ANION GAP 10 (8-16); BLOOD UREA NITROGEN 35 mg/dl (7-20); CALCIUM 8.3 mg/dl (8.4-10.2); CARBON DIOXIDE 23 mmol/L (21-31); CHLORIDE 106 mmol/L (97-110); CREATININE 1.28 mg/dl (0.61-1.24); GLUCOSE 122 mg/dl (70-220); POTASSIUM 3.3 mmol/L (3.5-5.1); SODIUM 136 mmol/L (135-144)
[2017-12-21] MEDS: INSULIN ASPART [NOVOLOG] 3 ML PEN SC ×4 (08:00→20:39)
[2017-12-21] MEDS: ZYVOX 600 MG TAB PO ×2 (08:18→20:45)
[2017-12-21] MEDS: FUROSEMIDE 20 MG INJ IV ×2 (08:18→11:53)
[2017-12-21] MEDS: HYDROmorphONE 1 MG/ML SYG IV ×3 (09:29→23:38)
[2017-12-21] MEDS: POTASSIUM CHLORIDE (SR) 20 MEQ TAB PO (11:55)
[2017-12-21] MEDS: INSULIN GLARGINE [LANtus] 3 ML PEN SC (20:41)
[2017-12-21] MEDS: ERTAPENEM SODIUM 1 GM in SOD CHLORIDE 0.9% 100 ML IVPB (20:44)
[2017-12-22] MEDS: HYDROmorphONE 1 MG/ML SYG IV ×4 (04:45→21:28)
[2017-12-22 07:15] LABS: ADD MAN DIFF? NO
[2017-12-22 07:21] LABS: BASOPHIL # 0.1 10^3/ul (0.0-0.1); BASOPHILS % 0.8 % (0.0-2.0); EOSINOPHILS # 0.6 10^3/ul (0.0-0.5); EOSINOPHILS % 4.9 % (0.0-7.0); HEMATOCRIT 31.7 % (42.0-52.0); HEMOGLOBIN 9.8 g/dl (14.0-18.0); LYMPHOCYTES # 1.7 10^3/ul (0.8-2.9); LYMPHOCYTES % 14.3 % (15.0-51.0); MEAN CORPUSCULAR HEMOGLOBIN 27.7 pg (29.0-33.0); MEAN CORPUSCULAR HGB CONC 30.9 g/dl (32.0-37.0); MEAN CORPUSCULAR VOLUME 89.5 fl (82.0-101.0); MEAN PLATELET VOLUME 8.9 fl (7.4-10.4); MONOCYTE # 1.4 10^3/ul (0.3-0.9); MONOCYTES % 11.7 % (0.0-11.0); NEUTROPHIL # 7.8 10^3/ul (1.6-7.5); NEUTROPHILS % 66.8 % (39.0-77.0); PLATELET COUNT 162 10^3/UL (140-415); RED BLOOD COUNT 3.54 10^6/ul (4.70-6.10); RED CELL DISTRIBUTION WIDTH 21.3 % (11.5-14.5)
[2017-12-22 07:21] LABS: WHITE BLOOD COUNT 11.7 10^3/ul (4.8-10.8)
[2017-12-22 07:43] LABS: ANION GAP 11 (8-16); BLOOD UREA NITROGEN 33 mg/dl (7-20); CALCIUM 8.3 mg/dl (8.4-10.2); CARBON DIOXIDE 23 mmol/L (21-31); CHLORIDE 108 mmol/L (97-110); CREATININE 1.37 mg/dl (0.61-1.24); GLUCOSE 94 mg/dl (70-220); POTASSIUM 3.9 mmol/L (3.5-5.1); SODIUM 138 mmol/L (135-144)
[2017-12-22] MEDS: INSULIN ASPART [NOVOLOG] 3 ML PEN SC ×4 (08:00→21:00)
[2017-12-22] MEDS: ZYVOX 600 MG TAB PO ×2 (09:17→21:28)
[2017-12-22] MEDS: FUROSEMIDE 20 MG INJ IV (09:19)
[2017-12-22] MEDS ORDERED: morphine LIQ (10 MG/5 ML) CUP PO (16:00)
[2017-12-22] MEDS: ERTAPENEM SODIUM 1 GM in SOD CHLORIDE 0.9% 100 ML IVPB (21:30)
[2017-12-22] MEDS: INSULIN GLARGINE [LANtus] 3 ML PEN SC (21:54)
[2017-12-23] MEDS: HYDROmorphONE 1 MG/ML SYG IV ×7 (00:32→22:32)
[2017-12-23] MEDS: ACCU-CHEK XX (01:28)
[2017-12-23 05:36] LABS: ADD MAN DIFF? NO
[2017-12-23 05:40] LABS: WHITE BLOOD COUNT 11.7 10^3/ul (4.8-10.8)
[2017-12-23 05:40] LABS: BASOPHIL # 0.1 10^3/ul (0.0-0.1); BASOPHILS % 0.7 % (0.0-2.0); EOSINOPHILS # 0.5 10^3/ul (0.0-0.5); EOSINOPHILS % 4.2 % (0.0-7.0); HEMATOCRIT 30.6 % (42.0-52.0); HEMOGLOBIN 9.5 g/dl (14.0-18.0); LYMPHOCYTES # 1.8 10^3/ul (0.8-2.9); MEAN CORPUSCULAR HEMOGLOBIN 27.7 pg (29.0-33.0); MEAN CORPUSCULAR VOLUME 89.2 fl (82.0-101.0); MEAN PLATELET VOLUME 9.3 fl (7.4-10.4); MONOCYTE # 1.4 10^3/ul (0.3-0.9); MONOCYTES % 11.8 % (0.0-11.0); NEUTROPHIL # 7.8 10^3/ul (1.6-7.5); NEUTROPHILS % 67.2 % (39.0-77.0); PLATELET COUNT 159 10^3/UL (140-415); RED BLOOD COUNT 3.43 10^6/ul (4.70-6.10); RED CELL DISTRIBUTION WIDTH 21.6 % (11.5-14.5)
[2017-12-23 06:06] LABS: ANION GAP 10 (8-16); BLOOD UREA NITROGEN 34 mg/dl (7-20); CALCIUM 8.3 mg/dl (8.4-10.2); CARBON DIOXIDE 23 mmol/L (21-31); CHLORIDE 108 mmol/L (97-110); CREATININE 1.36 mg/dl (0.61-1.24); GLUCOSE 93 mg/dl (70-220); POTASSIUM 3.8 mmol/L (3.5-5.1); SODIUM 137 mmol/L (135-144)
[2017-12-23] MEDS: INSULIN ASPART [NOVOLOG] 3 ML PEN SC ×4 (08:00→21:00)
[2017-12-23] MEDS: ZYVOX 600 MG TAB PO ×2 (08:39→21:06)
[2017-12-23] MEDS: ERTAPENEM SODIUM 1 GM in SOD CHLORIDE 0.9% 100 ML IVPB (21:06)
[2017-12-23] MEDS: ATORVASTATIN 10 MG TAB PO (21:06)
[2017-12-23] MEDS: INSULIN GLARGINE [LANtus] 3 ML PEN SC (21:07)
[2017-12-24] MEDS: HYDROmorphONE 1 MG/ML SYG IV ×6 (02:00→19:08)
[2017-12-24] MEDS: ACCU-CHEK XX (02:00)
[2017-12-24 05:39] LABS: ADD MAN DIFF? NO
[2017-12-24 05:50] LABS: WHITE BLOOD COUNT 11.9 10^3/ul (4.8-10.8)
[2017-12-24 05:50] LABS: BASOPHIL # 0.1 10^3/ul (0.0-0.1); BASOPHILS % 0.6 % (0.0-2.0); EOSINOPHILS # 0.5 10^3/ul (0.0-0.5); EOSINOPHILS % 4.3 % (0.0-7.0); HEMATOCRIT 31.3 % (42.0-52.0); HEMOGLOBIN 9.6 g/dl (14.0-18.0); LYMPHOCYTES # 1.7 10^3/ul (0.8-2.9); LYMPHOCYTES % 14.6 % (15.0-51.0); MEAN CORPUSCULAR HEMOGLOBIN 27.6 pg (29.0-33.0); MEAN CORPUSCULAR HGB CONC 30.7 g/dl (32.0-37.0); MEAN CORPUSCULAR VOLUME 89.9 fl (82.0-101.0); MEAN PLATELET VOLUME 8.9 fl (7.4-10.4); MONOCYTE # 1.4 10^3/ul (0.3-0.9); MONOCYTES % 11.6 % (0.0-11.0); NEUTROPHIL # 8.1 10^3/ul (1.6-7.5); PLATELET COUNT 145 10^3/UL (140-415); RED BLOOD COUNT 3.48 10^6/ul (4.70-6.10); RED CELL DISTRIBUTION WIDTH 21.6 % (11.5-14.5)
[2017-12-24 06:16] LABS: ANION GAP 8 (8-16); BLOOD UREA NITROGEN 36 mg/dl (7-20); CALCIUM 8.4 mg/dl (8.4-10.2); CARBON DIOXIDE 24 mmol/L (21-31); CHLORIDE 109 mmol/L (97-110); CREATININE 1.33 mg/dl (0.61-1.24); GLUCOSE 79 mg/dl (70-220); MAGNESIUM 2.1 mg/dl (1.7-2.5); PHOSPHORUS 4.3 mg/dl (2.5-4.9); POTASSIUM 3.7 mmol/L (3.5-5.1); SODIUM 137 mmol/L (135-144)
[2017-12-24] MEDS: INSULIN ASPART [NOVOLOG] 3 ML PEN SC ×4 (08:00→20:25)
[2017-12-24] MEDS: FERROUS SULFATE (EC) 325 MG TAB PO (08:42)
[2017-12-24] MEDS: ZYVOX 600 MG TAB PO (08:42)
[2017-12-24] MEDS: CHOLECALCIFEROL 1,000 UNIT TAB PO (08:42)
[2017-12-24] MEDS: FOLIC ACID 1 MG TAB PO (08:42)
[2017-12-24] MEDS: ASPIRIN (EC) 81 MG TAB PO (08:42)
[2017-12-24] MEDS: AMLODIPINE 10 MG TAB PO (08:43)
[2017-12-24] MEDS: INSULIN GLARGINE [LANtus] 3 ML PEN SC (20:24)
[2017-12-24] MEDS: ATORVASTATIN 10 MG TAB PO (20:24)
== END 2017-12-24 21:40 | DRG 872 ==
LOC: MS4 21:13 → PP2 12-22 20:52
PROC: 0W9G3ZX Drainage of Peritoneal Cavity, Percutaneous Approach, Diagnostic (ICD-10-PCS; principal; 2017-12-18)
DX: A41.9 Sepsis, unspecified organism (principal); N39.0 Urinary tract infection, site not specified; R18.8 Other ascites; C18.9 Malignant neoplasm of colon, unspecified; C78.7 Secondary malignant neoplasm of liver and intrahepatic bile duct; C77.9 Secondary and unspecified malignant neoplasm of lymph node, unspecified; N17.9 Acute kidney failure, unspecified; E11.9 Type 2 diabetes mellitus without complications; I10 Essential (primary) hypertension; E78.5 Hyperlipidemia, unspecified; Z51.5 Encounter for palliative care; B95.2 Enterococcus as the cause of diseases classified elsewhere; Z16.21 Resistance to vancomycin
CPT/HCPCS: 71045; 74176; 74183; 76700; 76705; 80048; 80053; 80202; 81001; 82042; 82150; 82728; 82945; 82962; 83540; 83605; 83615; 83735; 83986; 84100; 84157; 85025; 85610; 87040; 87070; 87086; 87102; 87116; 89051; 97110; 97163; 97167; 97530; 97535